=== PATIENT | female | born 1960 | race Caucasian/White ===

== ENCOUNTER 2020-08-13 12:58 | Inpatient (IN) | payer OTHER ==
[~2020-08-13] VITALS: Ht 170.2 cm; Wt 62.0 kg
[~2020-08-13 12:58] MED LIST: ASPI81TA50 PO; ATEN25TA42 PO; CRESTOR20 MG PO; GLIP5TAB10 PO; MAGN400T17 PO; METF10007 PO
--- NOTE | 2020-08-13 13:46 | PHYS DOC ---
Past History Past Medical History: Hypertension (MARCIA MCMULLEN APRN) Past Surgical History: Other Additional Past Surgical Histo: ANKLE (MARCIA MCMULLEN APRN) Alcohol Use: None (MARCIA MCMULLEN APRN) Adult General Chief Complaint Chief Complaint: DIZZY/LIGHT HEADED HPI HPI Patient is a 60-year-old patient who complains of dizziness since she woke up this morning. Patient states that when she stands up or she moves around she just feels dizzy, she states that the room does not spin she does feels a little wobbly on her feet. Patient denies any recent fever or chills, visual changes, nasal congestion cough shortness of breath or chest pain. Patient denies any abdominal pains, urinary symptoms, back pains, skin rashes, headaches focal weaknesses or sensory changes. Patient denies any COVID-19 symptoms, does not wish to be tested for the COVID-19 virus today. Patient denies any other physical symptoms or physical illnesses. Patient states no one else living in her home is having the same symptoms. (MARCIA MCMULLEN APRN) Review of Systems Review of Systems 14 body systems of review of systems have been reviewed. See HPI for pertinent positives and negative responses, otherwise all other systems are negative, nonpertinent or noncontributory. (MARCIA MCMULLEN APRN) Family History Family History Patient states both her mother and her father had diabetes. (MARCIA MCMULLEN APRN) Current Medications Current Medications Patient reports taking 1000 mg Metformin tablets twice daily, rosuvastatin 20 mg tablets daily, 81 mg aspirin daily, glipizide 5 mg tablet twice daily, magnesium oxide tablet daily. (MARCIA MCMULLEN APRN) Allergies Allergies Allergies Coded Allergies Type Severity Reaction Last Updated Verified tuberculin, purified protein deriva Allergy Intermediate 08/13/20 Yes (MARCIA MCMULLEN APRN) Physical Exam Physical Exam Constitutional: Well developed, well nourished, no acute distress, non-toxic appearance. HENT: Normocephalic, atraumatic, bilateral external ears normal, oropharynx moist, no oral exudates, nose normal. Eyes: PERRLA, EOMI, conjunctiva normal, no discharge. Neck: Normal range of motion, no tenderness, supple, no stridor. Cardiovascular:Heart rate regular rhythm, no murmur Lungs & Thorax: Bilateral breath sounds clear to auscultation Abdomen: Bowel sounds normal, soft, no tenderness, no masses, no pulsatile masses. Skin: Warm, dry, no erythema, no rash. Back: No tenderness, no CVA tenderness. Extremities: No tenderness, no cyanosis, no clubbing, ROM intact, no edema. Neurologic: Alert and oriented X 3, normal motor function, normal sensory function, no focal deficits noted. Assessment of cerebellar motor function intact. Psychologic: Affect normal, judgement normal, mood normal. (MARCIA MCMULLEN APRN) Current Patient Data Vital Signs Vital Signs Date Time Temp Pulse Resp B/P (MAP) Pulse Ox O2 Delivery O2 Flow Rate FiO2 08/13/20 13:34 98.1 106 15 145/77 (99) 98 Room Air Lab Results Laboratory Tests Test 08/13/20 14:18 08/13/20 15:12 08/13/20 15:23 08/13/20 15:35 White Blood Count 11.4 x10^3/uL Red Blood Count 4.15 x10^6/uL Hemoglobin 11.6 g/dL Hematocrit 34.7 % Mean Corpuscular Volume 84 fL Mean Corpuscular Hemoglobin 28 pg Mean Corpuscular Hemoglobin Concent 33 g/dL Red Cell Distribution Width 15.0 % Platelet Count 323 x10^3/uL Neutrophils (%) (Auto) 91 % Lymphocytes (%) (Auto) 3 % Monocytes (%) (Auto) 6 % Eosinophils (%) (Auto) 1 % Basophils (%) (Auto) 0 % Neutrophils # (Auto) 10.3 x10^3uL Lymphocytes # (Auto) 0.3 x10^3/uL Monocytes # (Auto) 0.7 x10^3/uL Eosinophils # (Auto) 0.1 x10^3/uL Basophils # (Auto) 0.0 x10^3/uL Segmented Neutrophils % 90 % Band Neutrophils % 1 % Lymphocytes % 5 % Monocytes % 4 % Platelet Estimate Adequate Sodium Level 131 mmol/L Potassium Level 3.5 mmol/L Chloride Level 90 mmol/L Carbon Dioxide Level 21 mmol/L Anion Gap 20 Blood Urea Nitrogen 72 mg/dL Creatinine 5.0 mg/dL Estimated GFR (Cockcroft-Gault) 8.9 BUN/Creatinine Ratio 14 Glucose Level 27 mg/dL Calcium Level 7.6 mg/dL Total Bilirubin 0.5 mg/dL Aspartate Amino Transf (AST/SGOT) 37 U/L Alanine Aminotransferase (ALT/SGPT) 22 U/L Alkaline Phosphatase 94 U/L Troponin I Quantitative < 0.017 ng/mL Total Protein 6.9 g/dL Albumin 2.6 g/dL Albumin/Globulin Ratio 0.6 Glucose (Fingerstick) 13 mg/dL 325 mg/dL 292 mg/dL Test 08/13/20 16:22 08/13/20 17:42 Glucose (Fingerstick) 202 mg/dL Lactic Acid Level 3.0 mmol/L Current Medications Medications (Trade) Dose Ordered Sig/Sowmya Route PRN Reason Start Time Stop Time Status Last Admin Dose Admin Sodium Chloride 1,000 ml @ 1,000 mls/hr 1X ONCE IV 08/13/20 14:30 08/13/20 15:29 DC 08/13/20 14:39 Dextrose (Dextrose 50%-Water Syringe) 25 gm 1X ONCE IV 08/13/20 15:15 08/13/20 15:16 DC 08/13/20 15:37 Dextrose/Sodium Chloride 1,000 ml @ 100 mls/hr 1X ONCE IV 08/13/20 15:15 08/14/20 01:14 Dextrose (Dextrose 50%-Water Syringe) 25 gm 1X ONCE IV 08/13/20 15:30 08/13/20 15:47 DC 08/13/20 15:36 (MARCIA MCMULLEN APRN) EKG EKG EKG performed at 1348 by house radiologist heart rate 104, TN interval 0.96, QTc interval 0.442, tachycardia without ischemia noted EKG interpreted by ED attending Dr. Santiago (MARCIA MCMULLEN APRN) Radiology/Procedures Radiology/Procedures []STATUS: ADM INORD. PHYSICIAN: MARCIA MCMULLEN APRN REASON: ACUTE ONSET DIZZYNESS PROCEDURE: CHEST AP ONLY EXAM: Chest, single view. HISTORY: Dizziness. COMPARISON: None. FINDINGS: A frontal view of the chest is obtained. There is no infiltrate, pleural effusion or pneumothorax. The heart is normal in size. IMPRESSION: No acute pulmonary finding. Electronically signed by: Galina La MD (08/13/2020 2:14 PM) [facility] DICTATED AND SIGNED BY: GALINA LA MD DATE: 08/13/20 1414 CC: MARCIA MCMULLEN APRN; GERA CLARKE MD; NICOLE KAHN MD ~MTH0 0 REASON: ACUTE ONSET DIZZYNESS PROCEDURE: CT HEAD WO CONTRAST CT Head W/O Contrast: History: ACUTE ONSET DIZZINESS Comparison: none Axial images were obtained without contrast. The jonas and white matter appears normal and symmetrical for the patients age. There is no mass effect, extraaxial fluid collections or hydrocephalus. There is no gross bleed. There is no focal loss of jonas-white matter distinction to suggest acute ischemia, i.e. stroke. Impression: No acute findings. PQRS Compliance Statement: One or more of the following individualized dose reduction techniques were utilized for this examination: 1. Automated exposure control 2. Adjustment of the mA and/or kV according to patient size 3. Use of iterative reconstruction technique Discussed with Dr. Santiago by telephone at 2:54pm on 08/13/2020 DICTATED AND SIGNED BY: ANJELICA DEVI MD DATE: 08/13/20 1459 CC: MARCIA MCMULLEN APRN; GERA CLARKE MD; NICOLE KAHN MD ~MTH0 0 (MARCIA MCMULLEN APRN) Heart Score Risk Factors: Risk Factors: DM, Current or recent (<one month) smoker, HTN, HLP, family history of CAD, obesity. Risk Scores: Risk Factors: DM, Current or recent (<one month) smoker, HTN, HLP, family history of CAD, obesity. (MARCIA MCMULLEN APRN) Course & Med Decision Making Course & Med Decision Making Pertinent Labs and Imaging studies reviewed. (See chart for details) 60-year-old patient presents emergency department today complaining of dizziness, patient denies any recent illnesses or fevers. Patient is patient was alert and oriented x3, had a steady gait with ambulation, patient's blood sugar 292. Patient's vital signs remained similar to her admission vital signs, blood pressure 137/65, heart rate 103, respirations 16 and unlabored, O2 sat 97 % on room air, she was afebrile at 98 oh oral temp. Patient states that she does not take any insulin at home, only takes her Metformin and glipizide for blood sugar. Patient also states that she ate a normal breakfast this morning. Patient was given a liter of normal saline related to her complete metabolic panel suggestive of dehydration. Patient's creatinine was 5.0 also most likely related to her dehydration status. Patient case was discussed with Dr. Clarke who agreed to admit the patient with a diagnosis of type 2 diabetes mellitus, symptomatic hypoglycemia. Discussed admission plan with patient who was amenable to admission to the hospital. Reexamination of the patient, patient states she feels much better and has no more dizziness. (MARCIA MCMULLEN APRN) Course & Med Decision Making I have reviewed the [employer]'s note and plan of care. I intervened after seeing patient's reported hypoglycemia had not been adequately addressed during early stage of her ER admission. Patient responded to ER intervention but still not stable to go home. I agree with plan of care and disposition as stated (LI SANTIAGO DO) Dragon Disclaimer Dragon Disclaimer This electronic medical record was generated, in whole or in part, using a voice recognition dictation system. (MARCIA MCMULLEN APRN) Departure Departure: Impression: Primary Impression: Hypoglycemia Additional Impressions: NOHEMY (acute kidney injury) Type 2 diabetes mellitus with complication, without long-term current use of insulin Disposition: ADMITTED INPT THIS HOSP Admitting Physician: Gera Clarke (MARCIA MCMULLEN APRN) Admitting Physician: Gera Clarke (LI SANTIAGO DO) Condition: STABLE Referrals: NICOLE KAHN MD (PCP) Problem Qualifiers MARCIA MCMULLEN APRN Aug 13, 2020 13:46 LI SANTIAGO DO Aug 14, 2020 08:26
[2020-08-13] MEDS ORDERED: IV NORMAL SALINE 1,000ML 1,000 ML IV ONE ×2 (14:30→16:00)
[2020-08-13 14:49] LABS: BASO % 0 % (0-3); EOS # 0.1 x10^3/uL (0.0-0.7); EOS % 1 % (0-3); HEMATOCRIT 34.7 % (36.0-47.0); HEMOGLOBIN 11.6 g/dL (12.0-15.5); LYMPH # 0.3 x10^3/uL (1.0-4.8); LYMPH % 3 % (24-48); MEAN CORPUSCULAR HEMOGLOBIN 28 pg (25-35); MEAN CORPUSCULAR HGB CONC 33 g/dL (31-37); MEAN CORPUSCULAR VOLUME 84 fL (79-100); MONO # 0.7 x10^3/uL (0.0-1.1); MONO % 6 % (0-9); NEUT # 10.3 x10^3uL (1.8-7.7); NEUT % 91 % (31-73); PLATELET COUNT 323 x10^3/uL (140-400); RED BLOOD COUNT 4.15 x10^6/uL (3.50-5.40); WHITE BLOOD COUNT 11.4 x10^3/uL (4.0-11.0)
[2020-08-13 15:04] LABS: ALBUMIN 2.6 g/dL (3.4-5.0); ALBUMIN/GLOBULIN RATIO 0.6 (1.0-1.7); CALCIUM 7.6 mg/dL (8.5-10.1); GFR 8.9; POTASSIUM 3.5 mmol/L (3.5-5.1); TOTAL BILIRUBIN 0.5 mg/dL (0.2-1.0); TOTAL PROTEIN 6.9 g/dL (6.4-8.2)
[2020-08-13 15:15] LABS: % BANDS 1 % (0-9); % LYMPHS 5 % (24-48); % MONOS 4 % (0-10); % SEGS 90 % (35-66)
[2020-08-13] MEDS ORDERED: IV DEXTROSE 5 %-0.45 % NACL 1,000 ML IV ONE (15:15)
[2020-08-13] MEDS ORDERED: DEXTROSE 50% 25 GM / 50ML DISP.SYRIN. IV ONE ×2 (15:15→15:30)
[2020-08-13 15:16] LABS: PLT ESTIMATE ADEQUATE (ADEQUATE)
[2020-08-13] MEDS ORDERED: ACETAMINOPHEN 325 MG TABLET PO PRN (16:00)
--- NOTE | 2020-08-13 16:50 | RAD ---
EXAM: Chest, single view. HISTORY: Dizziness. COMPARISON: None. FINDINGS: A frontal view of the chest is obtained. There is no infiltrate, pleural effusion or pneumothorax. The heart is normal in size. IMPRESSION: No acute pulmonary finding. Electronically signed by: Galina Nesbitt MD (08/13/2020 2:14 PM) [facility]
--- NOTE | 2020-08-13 16:50 | EKG ---
[facility] ED [facility] [place] [id number] Test Date: 2020-08-13 Test Time: 13:48:53 Pat Name: YE FOWLER Department: Room: 117 A Gender: F Director Home: : 1960 Requested By: LI SANTIAGO Order Number: [id number] Reading MD: Measurements Intervals [place] Rate: 104 P: 217 RI: 96 QRS: -39 QRSD: 102 T: 79 QT: 336 QTc: 442 Interpretive Statements SUPRAVENTRICULAR RHYTHM ABNORMAL LEFT AXIS DEVIATION LEFT ANTERIOR FASCICULAR BLOCK QRS(T) CONTOUR ABNORMALITY CONSIDER ANTEROSEPTAL MYOCARDIAL DAMAGE T ABNORMALITY IN HIGH LATERAL LEADS ABNORMAL ECG RI6.02 No previous ECG available for comparison
--- NOTE | 2020-08-13 16:50 | RAD ---
CT Head W/O Contrast: History: ACUTE ONSET DIZZINESS Comparison: none Axial images were obtained without contrast. The jonas and white matter appears normal and symmetrical for the patients age. There is no mass effect, extraaxial fluid collections or hydrocephalus. There is no gross bleed. There is no focal loss of jonas-white matter distinction to suggest acute ischemia, i.e. stroke. Impression: No acute findings. PQRS Compliance Statement: One or more of the following individualized dose reduction techniques were utilized for this examination: 1. Automated exposure control 2. Adjustment of the mA and/or kV according to patient size 3. Use of iterative reconstruction technique Discussed with Dr. Sharma by telephone at 2:54pm on 08/13/2020
[2020-08-13 16:58] VITALS: BP 113/85
--- NOTE | 2020-08-13 17:00 | NUR ---
The patient, YE FOWLER, 60 y/o, F admitted by RENETTA CONTE MD, was given written information regarding hospital policies, unit procedures and contact persons. Valuables were checked and pt oriented to room and call light.
--- NOTE | 2020-08-13 18:20 | NUR ---
Dr Clarke here to see pt. Pt Creat noted to be 5.0. Order to bolus pt with NS 1000 and scan bladder. Unable to read on scan. Pt straight cathed per order with 100cc of murky kathya urine. Sent for UA and culture. Pt pleasant and compliant. Pt isabella area cleaned as she was covered with dry feces. Dr Clarke wants pt moved to ICU bed.
[2020-08-13] MEDS: ONDANSETRON PF 4 MG/2 ML VIAL. IVP PRN ×2 (18:30→22:22)
[2020-08-13 19:56] LABS: BILIRUBIN,URINE NEG (NEG); CLARITY,URINE TURBID; COLOR,URINE AMBER; GLUCOSE,URINE NEG (NEG)
[2020-08-13 19:57] LABS: BACTERIA,URINE MANY /HPF (0-FEW); NITRITE,URINE NEG (NEG); RBC,URINE 20-40 /HPF (0-2); SQUAMOUS EPITHELIAL CELL,UR MOD /LPF; UROBILINOGEN,URINE 0.2 mg/dL (0.2 mg/dL); WBC,URINE >40 /HPF (0-4)
--- NOTE | 2020-08-13 21:00 | NUR ---
This nurse was getting report on patient and asked for the blood sugar to be checked. Pt's blood sugar is 27. Pt is still talking and A&O x 4, pt is eating food and drinking orange juice. This nurse gave d50 after starting another IV d/t the first IV went bad. Will continue to monitor.
[2020-08-13] MEDS: DEXTROSE 50% 25 GM / 50ML DISP.SYRIN. IV PRN ×2 (21:03→22:05)
--- NOTE | 2020-08-13 21:07 | RAD ---
Exam: CT of abdomen and pelvis without contrast INDICATION: Abdominal distention acute kidney injury TECHNIQUE: Sequential axial images through the abdomen and pelvis obtained without IV contrast. Sagittal and coronal reformatted images were reconstructed from the axial data and reviewed. Comparisons: None FINDINGS: Heart size is normal.. No pericardial effusion. Strandy opacities at dependent portion lungs likely representing atelectasis. No pleural effusion. Evaluation of the solid organs is limited secondary to noncontrast technique. Liver, spleen, pancreas and adrenals are unremarkable. Gallbladder surgically absent. There is mild bilateral perinephric stranding. No hydronephrosis. No renal or ureteral calculi are identified. Bladder is decompressed not well evaluated. Duong balloon in the bladder. Uterus is absent. No abnormal adnexal mass. Large and small bowel are unremarkable. Appendix is not identified. No free intra-abdominal air or fluid. No obstruction. Abdominal aorta has a normal course and caliber. No enlarged abdominal lymph nodes are identified. No suspicious osseous lesions or acute fractures. IMPRESSION: Bilateral perinephric stranding which is nonspecific may relate to infection or inflammatory process. Correlate with urinalysis. Exposure: One or more of the following in the visualized dose reduction techniques were utilized for this examination: 1. Automated exposure control 2. Adjustment of the MA and/or KV according to patient size 3. Use of iterative of reconstructive technique Electronically signed by: Connie Langley MD (08/13/2020 9:03 PM) [facility]
[2020-08-13] MEDS ORDERED: 0.9 % SODIUM CHLORIDE 10 ML DISP.SYRIN. IV PRN (21:30)
[2020-08-13 22:29] VITALS: BP 142/73
[2020-08-13] MEDS: IV DEXTROSE 5 %-0.45 % NACL 1,000 ML IV SCH (22:30)
--- NOTE | 2020-08-13 22:30 | NUR ---
Pt transferred to ICU bed 3. D50 given again before transferring to ICU. Pt's blood sugar was 57. Checked again now and it's 108. Will check blood sugar again at midnight. Call light at bedside will continue to monitor.
[2020-08-13 23:00] VITALS: BP 123/65
[2020-08-14] VITALS (14 sets, daily range): BP systolic 117–146; BP diastolic 59–85
--- NOTE | 2020-08-14 00:35 | HP ---
ADMIT DATE: 08/13/2020 HISTORY OF PRESENT ILLNESS: The patient is a 60-year-old female patient who came to the Emergency Room with a complaint of dizziness and lightheadedness. She also complained of weakness in her legs. She apparently checked her blood sugar at home and it was only 64 and apparently, was brought to the Emergency Room where she continued to complain of weakness and dizziness. Her lab work initially showed her blood sugar was only 13 mg. She was treated with D50 twice and received also a liter of normal saline and her blood sugar has improved. I transpired that she is on metformin as well as glipizide, that she takes 5 mg twice a day and metformin 1000 mg twice a day. She checks her blood sugar 3 times a day and her blood sugar was extremely well controlled, as her blood sugar seemed to be mostly within normal range indicting that she probably; however, when I looked at her serum creatinine it has risen to 5 mg with BUN of 72 and that is probably the reason why she developed severe hypoglycemia. PAST MEDICAL HISTORY: Significant for type 2 diabetes, hyperlipidemia, COPD and bronchial asthma. Has had left heart catheterization a few years ago that were fine and according to her, she sought ____ [facility] nurse practitioner and apparently was told that everything was fine according to her, PAST SURGICAL HISTORY: Significant for left ankle fracture, status post open reduction and internal fixation, total abdominal hysterectomy, bilateral salpingo-oophorectomy and bilateral cataract extraction. ALLERGIES: ____. PLAN: My plan is to scan her bladder to make sure there is not any bladder obstruction and aggressive treatment with IV fluid as this is the cause of her worsening hypoglycemia as her kidney function has worsened. If there is no improvement, she will probably need to be transferred to [facility] for dialysis tomorrow. RENETTA CONTE MD DR: HERRERA/marla JOB#: [id number] / [id number]
[2020-08-14] MEDS: DEXTROSE 50% 25 GM / 50ML DISP.SYRIN. IV PRN ×2 (01:15→04:18)
[2020-08-14] MEDS: IV DEXTROSE 10% 1,000 ML IV SCH ×2 (06:36→18:44)
--- NOTE | 2020-08-14 06:45 | NUR ---
See chart for blood sugar trends. Pt states, "I get really tired when my blood sugar is low." Educated pt about calling when she feels low; however, pt has not called. Notified Dr. Clarke of blood sugar trends and orders received. Pt has had 50 ml of urine this shift. Dr. Clarke is aware and awaiting labs. Call light at bedside. Will continue to monitor.
[2020-08-14 08:02] LABS: HEMATOCRIT 31.5 % (36.0-47.0); HEMOGLOBIN 10.1 g/dL (12.0-15.5); RED BLOOD COUNT 3.69 x10^6/uL (3.50-5.40); RED CELL DISTRIBUTION WIDTH 15.4 % (11.5-14.5); WHITE BLOOD COUNT 10.4 x10^3/uL (4.0-11.0)
[2020-08-14] MEDS ORDERED: NICOTINE 21MG PATCH. TD SCH (09:00)
[2020-08-14] MEDS: INSULIN LISPRO 300 UNITS/3 ML VIAL. SQ SCH ×3 (09:21→17:26)
[2020-08-14 11:37] LABS: ALBUMIN 1.9 g/dL (3.4-5.0); ALBUMIN/GLOBULIN RATIO 0.4 (1.0-1.7); CALCIUM 7.1 mg/dL (8.5-10.1); CREATININE 5.4 mg/dL (0.6-1.0); GFR 8.1; TOTAL BILIRUBIN 0.3 mg/dL (0.2-1.0); TOTAL PROTEIN 6.2 g/dL (6.4-8.2)
[2020-08-14 11:38] LABS: POTASSIUM 3.9 mmol/L (3.5-5.1)
[2020-08-14] MEDS: IV DEXTROSE 5 %-0.45 % NACL 1,000 ML IV SCH ×2 (15:07→18:44)
[2020-08-14 16:23] LABS: CALCIUM 6.9 mg/dL (8.5-10.1); CREATININE 5.6 mg/dL (0.6-1.0); GFR 7.8; POTASSIUM 4.1 mmol/L (3.5-5.1)
[2020-08-14 16:29] LABS: ALBUMIN 2.1 g/dL (3.4-5.0); ALBUMIN/GLOBULIN RATIO 0.5 (1.0-1.7); TOTAL BILIRUBIN 0.4 mg/dL (0.2-1.0); TOTAL PROTEIN 6.7 g/dL (6.4-8.2)
[2020-08-14] MEDS: ONDANSETRON PF 4 MG/2 ML VIAL. IVP PRN (20:14)
[2020-08-15 01:44] VITALS: BP 120/74
[2020-08-15 02:49] VITALS: BP 129/80
[2020-08-15 03:57] VITALS: BP 122/80
[2020-08-15] MEDS: IV DEXTROSE 5 %-0.45 % NACL 1,000 ML IV SCH (04:30)
[2020-08-15 05:00] VITALS: BP 129/77
[2020-08-15 06:00] VITALS: BP 120/76
[2020-08-15] MEDS: ONDANSETRON PF 4 MG/2 ML VIAL. IVP PRN (06:04)
[2020-08-15 07:00] VITALS: BP 131/81
--- NOTE | 2020-08-15 08:00 | NUR ---
Report given to CARRI LOFTON at [facility]. Pt was instructed on transfer to [facility], pt aware of plan to do dialysis and was sent via EMS to [facility]. Pt's IV was maintained via EMS. Report given to EMS at bedside. Transfer of care.
[2020-08-15 08:41] LABS: BASO % 0 % (0-3); EOS % 0 % (0-3); HEMATOCRIT 35.4 % (36.0-47.0); HEMOGLOBIN 11.1 g/dL (12.0-15.5); LYMPH # 0.4 x10^3/uL (1.0-4.8); LYMPH % 3 % (24-48); MEAN CORPUSCULAR HEMOGLOBIN 28 pg (25-35); MEAN CORPUSCULAR HGB CONC 31 g/dL (31-37); MEAN CORPUSCULAR VOLUME 89 fL (79-100); MONO # 0.9 x10^3/uL (0.0-1.1); MONO % 7 % (0-9); NEUT # 10.9 x10^3uL (1.8-7.7); NEUT % 90 % (31-73); PLATELET COUNT 257 x10^3/uL (140-400); RED BLOOD COUNT 3.97 x10^6/uL (3.50-5.40); WHITE BLOOD COUNT 12.2 x10^3/uL (4.0-11.0)
== END 2020-08-15 08:00 | disposition short-term general hospital (02) | DRG 637 ==
LOC: ER 12:58 → 1 SOUTH 15:40 → ICU 21:04
PROVIDERS: ADMIT Internal Medicine; ATTEND Internal Medicine
DX: E11.649 Type 2 diabetes mellitus with hypoglycemia without coma (principal); E43 Unspecified severe protein-calorie malnutrition; N17.0 Acute kidney failure with tubular necrosis; E78.5 Hyperlipidemia, unspecified; I10 Essential (primary) hypertension; J45.909 Unspecified asthma, uncomplicated; J44.9 Chronic obstructive pulmonary disease, unspecified; Z79.84 Long term (current) use of oral hypoglycemic drugs; Z90.710 Acquired absence of both cervix and uterus; Z98.42 Cataract extraction status, left eye; Z98.41 Cataract extraction status, right eye; Z90.79 Acquired absence of other genital organ(s); Z90.722 Acquired absence of ovaries, bilateral; Z88.8 Allergy status to other drugs, medicaments and biological substances; Z83.3 Family history of diabetes mellitus; Z68.21 Body mass index [BMI] 21.0-21.9, adult
CPT/HCPCS: 36415; 70450; 71045; 74176; 80053; 81001; 82947; 83605; 83690; 84484; 85007; 85025; 85027; 87086; 93005; 96361; 96374; J1815; J2405; 97116; 99285-25; J7030

== ENCOUNTER → 2020-09-15 | Outpatient (CLI) | payer OTHER ==
[2020-09-15 21:32] LABS: TOTAL SERUM CREATININE 1.53 mg/dL (0.57-1.00); TOTAL URINE CREATININE 20.6 mg/dL (Not Estab.)
== END ==
LOC: LAB 08:14
PROVIDERS: ATTEND Internal Medicine Nephrology
DX: N17.9 Acute kidney failure, unspecified (principal)
CPT/HCPCS: 36415; 82575

== ENCOUNTER → 2020-09-23 | Outpatient (CLI) | payer OTHER ==
[2020-09-23 11:12] LABS: HEMATOCRIT 27.2 % (36.0-47.0); HEMOGLOBIN 8.7 g/dL (12.0-15.5)
[2020-09-23 11:15] LABS: ALBUMIN 2.2 g/dL (3.4-5.0); CALCIUM 9.9 mg/dL (8.5-10.1); CREATININE 1.4 mg/dL (0.6-1.0); GFR 38.6; PHOSPHORUS 2.9 mg/dL (2.6-4.7); POTASSIUM 3.7 mmol/L (3.5-5.1)
== END ==
LOC: LAB 09:11
PROVIDERS: ATTEND Nurse Practitioner Family
DX: N17.0 Acute kidney failure with tubular necrosis (principal)
CPT/HCPCS: 36415; 80069; 82728; 83540; 85014; 85018

== ENCOUNTER → 2020-10-15 | Outpatient (CLI) | payer OTHER ==
[2020-10-15 09:22] LABS: HEMATOCRIT 33.4 % (36.0-47.0); HEMOGLOBIN 10.5 g/dL (12.0-15.5)
[2020-10-15 09:43] LABS: ALBUMIN 2.8 g/dL (3.4-5.0); CALCIUM 9.3 mg/dL (8.5-10.1); CREATININE 1.2 mg/dL (0.6-1.0); GFR 46.1; PHOSPHORUS 3.9 mg/dL (2.6-4.7)
[2020-10-15 10:04] LABS: BACTERIA,URINE MANY /HPF (0-FEW); BILIRUBIN,URINE NEG (NEG); CLARITY,URINE TURBID; COLOR,URINE YELLOW; GLUCOSE,URINE >=1000 mg/dL (NEG); NITRITE,URINE NEG (NEG); SQUAMOUS EPITHELIAL CELL,UR FEW /LPF; UROBILINOGEN,URINE 0.2 mg/dL (0.2 mg/dL); WBC,URINE >40 /HPF (0-4)
[2020-10-15 13:29] LABS: CREATININE,RANDOM URINE 27.4 mg/dL (Not Establ.)
[2020-10-16 07:10] LABS: CALCIUM PTH 9.5 mg/dL (8.7-10.2); CREATININE PTH 0.92 mg/dL (0.57-1.00); PTH INTACT 30 pg/mL (15-65)
[2020-10-16 09:09] LABS: MICROALB RD UR 49.1 ug/mL (Not Estab.)
== END ==
LOC: LAB 08:25
PROVIDERS: ATTEND Nurse Practitioner Adult Health
DX: N17.9 Acute kidney failure, unspecified (principal); E11.9 Type 2 diabetes mellitus without complications; D64.9 Anemia, unspecified; E87.6 Hypokalemia; I10 Essential (primary) hypertension
CPT/HCPCS: 36415; 80069; 81001; 82043; 82306; 82570; 82728; 83540; 83550; 83970; 84156; 85014; 85018; 87086